=== PATIENT | female | born 1950 | race Caucasian/White ===

== ENCOUNTER → 2016-11-30 | Outpatient (CLI) | payer OTHER ==
--- NOTE | ~2016-11-30 | US6 ---
[facility] A Service of [facility] RADIOLOGY TEXT RESULTS PATIENT: MARCO PUENTES LOCATION: [facility] : 54 UNIT #: [id number] AGE: [address]: Kobe Oglesby MD SEX: F ORDER DR: [id number] [facility]. [place], [place] [address] [id number] MR#: [id number] Acc #: [id number] NAME: MARCO PUENTES : 1950 SEX: F STUDY DATE/TIME: 11/30/2016 9:27 UNIT: [facility] ROOM: STUDY DESCRIPTION: US Abdominal Limited Attending Physician: Kobe Oglesby M.D. Ordering Physician: Kobe Oglesby M.D. Primary Care Physician: Kobe Oglesby M.D. MEDICAL IMAGING REPORT This report is preliminary unless electronic signature is present EXAM Right upper quadrant abdominal ultrasound INDICATIONS Elevated liver enzyme levels. PROCEDURE Parr-scale and Doppler imaging right upper quadrant of the abdomen COMPARISON None FINDINGS Visualized portions of pancreas are unremarkable. Liver measures 14.6 cm in length. No liver mass seen on submitted images. Unremarkable gallbladder. Right kidney measures 12.9 cm. No hydronephrosis. Common duct measures 3-4 mm. IMPRESSION Increased liver echotexture most in keeping with steatosis. Otherwise negative right upper quadrant ultrasound. Dictated by... Kevin Cabezas M.D. THIS IS AN ELECTRONICALLY VERIFIED REPORT Kevin Cabezas M.D. at 12/01/2016 7:11 AM Justin TD: 11/30/2016 15:53 JOB #: [id number] MEDICAL IMAGING REPORT [facility] A Service [facility] RADIOLOGY TEXT RESULTS PATIENT: MARCO PUENTES LOCATION: [facility] : 54 UNIT #: [id number] AGE: [address]: Kobe Oglesby MD SEX: F ORDER DR: Page 1 of 1 COPY
== END | disposition home or self-care (01) ==
LOC: CWCC 09:00
DX: R74.8 Abnormal levels of other serum enzymes (principal)
CPT/HCPCS: 76705